=== PATIENT | female | born 1970 | race Caucasian/White ===

== ENCOUNTER 2022-02-06 16:49 | Emergency (ER) | payer OTHER ==
[2022-02-06] MEDS ORDERED: POLYSPORIN OI28.3 G1 TP (19:51)
[2022-02-06] MEDS ORDERED: IBUPROFEN800 MG PO (19:51)
== END 2022-02-06 20:25 | disposition home or self-care (01) ==
LOC: ER1 16:49
DX: S80.11XA Contusion of right lower leg, initial encounter (principal); E78.5 Hyperlipidemia, unspecified; I10 Essential (primary) hypertension; Z91.013 Allergy to seafood; W17.89XA Other fall from one level to another, initial encounter
CPT/HCPCS: 73564; 73590; 90714; 99283; J1885